=== PATIENT | male | born 1995 | race Caucasian/White ===

== ENCOUNTER 2018-07-20 17:01 | Emergency (ER) | payer MEDICAID ==
[~2018-07-20] VITALS: Ht 185.4 cm; Wt 77.6 kg
[2018-07-20 17:04] VITALS: Ht 185.4 cm; Wt 77.6 kg
[2018-07-20 18:50] VITALS: BP 119/66
== END 2018-07-20 18:50 | disposition home or self-care (01) ==
LOC: ED 17:01
DX: T78.3XXA Angioneurotic edema, initial encounter (principal); L25.9 Unspecified contact dermatitis, unspecified cause; J45.909 Unspecified asthma, uncomplicated; H57.8 Other specified disorders of eye and adnexa; Y92.89 Other specified places as the place of occurrence of the external cause
CPT/HCPCS: J7510; J7512; Q0163

== ENCOUNTER 2019-07-16 21:51 | Emergency (ER) | payer OTHER ==
[~2019-07-16] VITALS: Ht 185.4 cm; Wt 75.7 kg
[2019-07-16 22:10] VITALS: BP 100/62
== END 2019-07-17 00:41 | disposition left against medical advice (07) ==
LOC: ED 21:51
DX: Z53.21 Procedure and treatment not carried out due to patient leaving prior to being seen by health care provider (principal)